=== PATIENT | female | born 1975 | race Caucasian/White ===

== ENCOUNTER 2022-04-13 02:17 | Emergency (ER) | payer MEDICAID ==
[~2022-04-13] VITALS: Ht 157.5 cm; Wt 84.1 kg
[2022-04-13] MEDS ORDERED: AMOX-580 PO (06:56)
[2022-04-13] MEDS ORDERED: CEPH-585 PO (06:56)
[2022-04-13 07:12] VITALS: BP 130/82
[2022-04-13] MEDS ORDERED: ibuprofen tablet 400 MG TABLET PO ONE (07:40)
[2022-04-13] MEDS ORDERED: ibuprofen 200mg tablet PO ONE (07:45)
== END 2022-04-13 07:57 | disposition home or self-care (01) ==
LOC: ER 02:20
DX: K61.0 Anal abscess (principal); Z79.899 Other long term (current) drug therapy
CPT/HCPCS: 99283